=== PATIENT | female | born 1980 | race Two or more races ===

== ENCOUNTER 2025-08-26 14:08 | Emergency (ER) | payer SELFPAY ==
[2025-08-26] MEDS ORDERED: Ibuprofen 200 MG TAB ONE (16:47)
== END 2025-08-26 17:03 | disposition home or self-care (01) ==
LOC: ERS 14:08
DX: S80.01XA Contusion of right knee, initial encounter (principal); E66.9 Obesity, unspecified; W01.0XXA Fall on same level from slipping, tripping and stumbling without subsequent striking against object, initial encounter; Y93.01 Activity, walking, marching and hiking
CPT/HCPCS: 70450; 72125

== ENCOUNTER 2025-08-27 10:06 | Emergency (ER) | payer SELFPAY | END 2025-08-27 11:05 | disposition home or self-care (01) | LOC: ERS 10:06 | DX: S80.01XD Contusion of right knee, subsequent encounter (principal); E66.9 Obesity, unspecified; Z87.891 Personal history of nicotine dependence; Z68.41 Body mass index [BMI] 40.0-44.9, adult; W01.0XXD Fall on same level from slipping, tripping and stumbling without subsequent striking against object, subsequent encounter | CPT/HCPCS: 96372; 99282 ==